=== PATIENT | male | born 1955 | race Caucasian/White ===

== ENCOUNTER 2024-09-18 06:53 | Day surgery (SDC) | payer MEDICARE, BC ==
[2024-09-16 13:12] LABS: BASOPHILS % (AUTO) 0.3 % (0-1); EOSINOPHILS # (AUTO) 0.3 X10'3 (0-0.9); EOSINOPHILS % (AUTO) 2.7 % (0-6); HEMOGLOBIN 14.3 g/dl (14.0-17.9); LYMPHOCYTES # (AUTO) 2.2 X10'3 (1.1-4.8); LYMPHOCYTES % (AUTO) 21.5 % (21-51); MEAN CORPUSCULAR HEMOGLOBIN 31.1 PG (27.0-31.0); MEAN CORPUSCULAR HGB CONC 34.9 g/dL (33.0-36.5); MEAN CORPUSCULAR VOLUME 89.1 FL (78-98); MEAN PLATELET VOLUME 7.5 FL (7.4-10.4); MONOCYTES # (AUTO) 0.9 X10'3 (0-0.9); MONOCYTES % (AUTO) 9.1 % (2-12); NEUTROPHILS # (AUTO) 6.8 X10'3 (1.8-7.7); NEUTROPHILS % (AUTO) 66.4 % (42-75); PLATELET COUNT 306 X10'3 (140-440); RED CELL DISTRIBUTION WIDTH 13.3 % (11.5-14.5); WHITE BLOOD COUNT 10.3 X10'3 (4.5-11.0)
[2024-09-16 13:35] LABS: ALANINE AMINOTRANSFERASE 37 U/L (12-78); ALBUMIN 3.8 G/DL (3.4-5.0); ALBUMIN/GLOBULIN RATIO 1.1 (1.1-1.5); ALKALINE PHOSPHATASE 69 IU/L (46-116); ANION GAP 5 (8-16); ASPARTATE AMINO TRANSFERASE 22 U/L (10-37); BILIRUBIN,TOTAL 0.8 MG/DL (0.1-1.0); BLOOD UREA NITROGEN 12 MG/DL (7-18); BUN/CREATININE RATIO 9.6 (10.0-20.0); CALCIUM 8.6 MG/DL (8.5-10.1); CHLORIDE 107 MMOL/L (99-107); CREATININE 1.25 MG/DL (0.60-1.10); POTASSIUM 4.1 MMOL/L (3.5-5.1); SODIUM 143 MMOL/L (135-145); TOTAL CARBON DIOXIDE 31.1 MMOL/L (24-32); TOTAL PROTEIN 7.3 G/DL (6.4-8.2); eGFR 57 ML/MIN
[2024-09-16 14:02] LABS: GLUCOSE 101 MG/DL (70-104)
[~2024-09-18] VITALS: Ht 182.9 cm; Wt 107.6 kg
[2024-09-18] MEDS: ceFAZolin 2gm in dextrose, iso 50 ML IV ONE (05:30)
[~2024-09-18 06:53] MED LIST: AMLO2.5T2 PO; ASPI-1071 PO; BUPIVAcaine 0.5% inj/PF 30 ML ONE; BUPIVAcaine/PF 5 mg/ml 10ml ONE; LIDOcaine 1% (10mg/ml)w/preservative inj. 20ml MDV ONE; LIDOcaine 1% 30ml preserv. free vial ONE; LOSA100T58 PO; ROSU5TAB51 PO
[2024-09-18 07:05] VITALS: BP 131/68; PULSE 52; RESP 16; TEMP 97.5; O2SAT 98
[2024-09-18] MEDS ORDERED: LIDOcaine 1% w/EPI 1:100,000 inj. MDV 50 ML VIAL ONE (07:22)
[2024-09-18] MEDS ORDERED: morphine 10mg/ml inj. ONE (07:22)
[2024-09-18] MEDS ORDERED: labetalol 20mg/4ml (5mg/ml) syringe IV PRN (07:30)
[2024-09-18] MEDS ORDERED: meperidine/PF 25mg/ml syringe IV PRN ×3 (07:30)
[2024-09-18] MEDS ORDERED: proCHLORperazine 10 MG/2 ml inj IV PRN (07:30)
[2024-09-18] MEDS ORDERED: morphine 2 MG/ML inj. syringe IV PRN (07:30)
[2024-09-18] MEDS ORDERED: ondansetron/PF 4mg/2ml inj IV PRN (07:30)
[2024-09-18] MEDS ORDERED: ringers solution, lacted 1,000 ML IV SCH (07:30)
[2024-09-18] MEDS ORDERED: hydrALAZINE 20mg/ml inj. IV PRN (07:30)
[2024-09-18] MEDS ORDERED: acetaminophen 1,000mg/100ml IV 100 ML IV ONE (07:30)
[2024-09-18] MEDS ORDERED: morphine 4 MG/ML inj SYRINge IV PRN (07:30)
[2024-09-18] MEDS: ringers solution, lacted 1,000 ML IV SCH (07:50)
[2024-09-18] MEDS: famotidine 20mg tablet PO ONE (07:51)
[2024-09-18] MEDS: tranexamic acid 650mg tablet PO ONE (07:54)
[2024-09-18] MEDS: VANCOMYCIN 1,500MG inj. 1,500 MG in normal saline 500ml IV soln 300 ML IV ONE (07:54)
[2024-09-18] MEDS ORDERED: fentaNYL/PF 50MCG/1 ML 2ML syringe ONE (07:56)
[2024-09-18] MEDS ORDERED: midazolam 1 mg/ML 2ml injection ONE (07:57)
[2024-09-18] MEDS ORDERED: propofol inj 20 ML IV ONE (08:21)
[2024-09-18 08:56] VITALS: BP 114/57; PULSE 64; RESP 16; O2SAT 97
[2024-09-18 09:00] VITALS: BP 112/57; PULSE 52; RESP 12; O2SAT 97
[2024-09-18 09:10] VITALS: BP 120/56; PULSE 49; RESP 12; O2SAT 96
[2024-09-18] MEDS ORDERED: HYDROcodone/acetaminophen 10/325mg tab PO PRN (09:10)
[2024-09-18 09:20] VITALS: BP 113/59; PULSE 52; RESP 18; O2SAT 98
[2024-09-18 09:30] VITALS: BP 110/56; PULSE 53; RESP 17; O2SAT 98
== END 2024-09-18 09:46 | disposition home or self-care (01) ==
LOC: PAS 06:53
PROVIDERS: ATTEND Orthopaedic Surgery
DX: M23.42 Loose body in knee, left knee (principal); M25.562 Pain in left knee; M17.12 Unilateral primary osteoarthritis, left knee; M23.201 Derangement of unspecified lateral meniscus due to old tear or injury, left knee; M94.262 Chondromalacia, left knee; Z79.899 Other long term (current) drug therapy; Z98.890 Other specified postprocedural states; Z79.82 Long term (current) use of aspirin
CPT/HCPCS: 29877; 36415; 80053; 82948; 85025; 93005; A4215; A4618; A6402; A6449; A7000; J0665; J0690; J2250; J2270; J2704; J3010; J3370; J3490; J7040; J7120; Z7506; Z7508; Z7512; Z7610; J2003; J2274